=== PATIENT | female | born 1995 | race Caucasian/White ===

== ENCOUNTER 2017-03-27 09:07 | Inpatient (IN) | payer MEDICAID ==
[~2017-03-27] VITALS: Ht 154.9 cm; Wt 107.3 kg
[2017-03-27 09:34] VITALS: BP 138/77
[2017-03-27 09:43] LABS: HEMATOCRIT 34.4 % (34.6-47.8); HEMOGLOBIN 11.8 g/dL (11.7-16.4); WHITE BLOOD COUNT 12.6 x10^3/uL (3.4-10)
[2017-03-27 09:49] LABS: ASPARTATE AMINO TRANSFERASE 15 U/L (15-37); BLOOD UREA NITROGEN 7 mg/dL (7-18)
[2017-03-27] MEDS ORDERED: BETAMETHASONE 6 MG/ML, 5ML IM ONE (10:58)
[2017-03-27] MEDS: BETAMETHASONE 6 MG/ML, 5ML IM SCH (11:02)
[2017-03-27] MEDS ORDERED: ACETAMINOPHEN 325 MG TABLET ONE ×3 (14:04→23:54)
[2017-03-27] MEDS: ACETAMINOPHEN 325 MG TABLET PO PRN ×3 (14:20→23:57)
[2017-03-28] MEDS ORDERED: ACETAMINOPHEN 325 MG TABLET ONE (07:51)
[2017-03-28] MEDS: ACETAMINOPHEN 325 MG TABLET PO PRN (07:54)
[2017-03-28] MEDS: BETAMETHASONE 6 MG/ML, 5ML IM SCH (11:15)
== END 2017-03-28 12:55 | disposition home or self-care (01) | DRG 781 ==
LOC: LDOP 09:07 → LDIP 10:53
PROVIDERS: ADMIT Obstetrics & Gynecology Gynecology; ATTEND Obstetrics & Gynecology Gynecology
DX: O13.3 Gestational [pregnancy-induced] hypertension without significant proteinuria, third trimester (principal); O14.93 Unspecified pre-eclampsia, third trimester; J45.909 Unspecified asthma, uncomplicated; O99.513 Diseases of the respiratory system complicating pregnancy, third trimester; Z3A.32 32 weeks gestation of pregnancy
CPT/HCPCS: 36415; 80053; 81001; 81050; 82570; 84156; 84550; 85025; 87086; J0702

== ENCOUNTER 2017-04-16 11:58 | Outpatient (CLI) | payer MEDICAID ==
[~2017-04-16] VITALS: Ht 154.9 cm; Wt 110.0 kg
[2017-04-16 12:08] VITALS: BP 124/59
== END 2017-04-16 12:32 | disposition home or self-care (01) ==
LOC: LDOP 11:58
PROVIDERS: ATTEND Obstetrics & Gynecology Gynecology
DX: O10.913 Unspecified pre-existing hypertension complicating pregnancy, third trimester (principal); O99.513 Diseases of the respiratory system complicating pregnancy, third trimester; J45.909 Unspecified asthma, uncomplicated; Z3A.35 35 weeks gestation of pregnancy
CPT/HCPCS: 59025; 99211; G0463

== ENCOUNTER 2017-04-22 14:39 | Outpatient (CLI) | payer MEDICAID ==
[~2017-04-22] VITALS: Ht 154.9 cm; Wt 110.5 kg
[2017-04-22 14:45] VITALS: BP 135/72
[2017-04-22 15:24] LABS: ALANINE AMINOTRANSFERASE 18 U/L (12-78); ALBUMIN 2.2 g/dL (3.4-5.0); ANION GAP 9 mmol/L (5-15); CALCIUM 8.3 mg/dL (8.5-10.1); CHLORIDE 110 mmol/L (98-107); CREATININE 0.55 mg/dL (0.55-1.02)
[2017-04-22 15:27] LABS: ALKALINE PHOSPHATASE 141 U/L (45-117); BILIRUBIN,TOTAL 0.2 mg/dL (0.2-1.0); TOTAL PROTEIN 5.5 g/dL (6.4-8.2)
[2017-04-22 15:33] LABS: BASOPHILS # (AUTO) 0.02 x10^3/uL (0-0.1); BASOPHILS % (AUTO) 0 % (0-1); EOSINOPHILS # (AUTO) 0.14 x10^3/uL (0-0.4); EOSINOPHILS % (AUTO) 1 % (1-7); LYMPHOCYTES # (AUTO) 2.19 x10^3/uL (1-3.4); LYMPHOCYTES % (AUTO) 22 % (22-44); MD NO; MEAN CORPUSCULAR HEMOGLOBIN 26.5 pg (27.0-34.8); MEAN CORPUSCULAR HGB CONC 33.5 g/dL (32.4-35.8); MEAN CORPUSCULAR VOLUME 79.1 fL (80-100); MEAN PLATELET VOLUME 6.9 fL (7.4-10.4); MONOCYTES # (AUTO) 0.59 x10^3/uL (0.2-0.8); MONOCYTES % (AUTO) 6 % (2-9); NEUTROPHILS # (AUTO) 7.23 x10^3/uL (1.8-6.8); NEUTROPHILS % (AUTO) 71 % (42-75); PLATELET COUNT 294 x10^3/uL (130-400); RED BLOOD COUNT 4.02 x10^6/uL (3.82-5.3); RED CELL DISTRIBUTION WIDTH 14.1 % (9.6-15.2)
[2017-04-22 15:35] LABS: MICROSCOPIC INDICATED
== END 2017-04-22 16:00 | disposition home or self-care (01) ==
LOC: LDOP 14:39
PROVIDERS: ATTEND Obstetrics & Gynecology Gynecology
DX: O26.893 Other specified pregnancy related conditions, third trimester (principal); R03.0 Elevated blood-pressure reading, without diagnosis of hypertension; Z3A.36 36 weeks gestation of pregnancy
CPT/HCPCS: 36415; 59025; 80053; 81001; 84550; 85025; 99211; G0463

== ENCOUNTER 2017-04-29 07:46 | Inpatient (IN) | payer MEDICAID ==
[~2017-04-29] VITALS: Ht 154.9 cm; Wt 115.0 kg
[2017-04-29] MEDS ORDERED: D5%-LACTATED RINGERS 1,000 ML IV SCH (21:06)
[2017-04-29] MEDS ORDERED: OXYTOCIN 30U/ 0.9% NaCL 500ML 500 ML IV ONE (21:06)
[2017-04-29] MEDS ORDERED: METOCLOPRAMIDE 5 MG/ML, 2ML IVPush PRN (21:30)
[2017-04-29] MEDS ORDERED: SODIUM CITRATE/CITRIC ACID 30 ML UDC PO PRN (21:30)
[2017-04-29] MEDS ORDERED: ONDANSETRON 2MG/ML, 2ML IVPush PRN (21:30)
[2017-04-29] MEDS ORDERED: FENTANYL PF 100 MCG/2ML IV PRN (21:30)
[2017-04-29] MEDS ORDERED: MISOPROSTOL 25 MCG TABLET VG PRN (21:30)
[2017-04-29] MEDS ORDERED: TERBUTALINE 1 MG/ML, 1ML IVPush PRN (21:30)
[2017-04-29] MEDS ORDERED: CALCIUM CARBONATE 500 MG TAB.CHEW PO PRN (21:30)
[2017-04-29 21:31] LABS: BASOPHILS # (AUTO) 0.02 x10^3/uL (0-0.1); BASOPHILS % (AUTO) 0 % (0-1); EOSINOPHILS # (AUTO) 0.17 x10^3/uL (0-0.4); EOSINOPHILS % (AUTO) 1 % (1-7); LYMPHOCYTES # (AUTO) 2.23 x10^3/uL (1-3.4); LYMPHOCYTES % (AUTO) 19 % (22-44); MD NO; MEAN CORPUSCULAR HEMOGLOBIN 26.7 pg (27.0-34.8); MEAN CORPUSCULAR HGB CONC 33.6 g/dL (32.4-35.8); MEAN CORPUSCULAR VOLUME 79.3 fL (80-100); MONOCYTES # (AUTO) 0.78 x10^3/uL (0.2-0.8); MONOCYTES % (AUTO) 7 % (2-9); NEUTROPHILS # (AUTO) 8.48 x10^3/uL (1.8-6.8); NEUTROPHILS % (AUTO) 73 % (42-75); PLATELET COUNT 280 x10^3/uL (130-400); RED BLOOD COUNT 4.21 x10^6/uL (3.82-5.3); RED CELL DISTRIBUTION WIDTH 14.7 % (9.6-15.2)
[2017-04-29 21:42] LABS: ALBUMIN 2.3 g/dL (3.4-5.0); ANION GAP 9 mmol/L (5-15); CALCIUM 8.4 mg/dL (8.5-10.1); CHLORIDE 110 mmol/L (98-107)
[2017-04-29 21:45] LABS: ALANINE AMINOTRANSFERASE 17 U/L (12-78); ALKALINE PHOSPHATASE 160 U/L (45-117); BILIRUBIN,TOTAL 0.2 mg/dL (0.2-1.0); CREATININE 0.49 mg/dL (0.55-1.02); TOTAL PROTEIN 5.7 g/dL (6.4-8.2)
[2017-04-29] MEDS ORDERED: MISOPROSTOL 25 MCG TABLET ONE (21:46)
[2017-04-29 21:47] LABS: BILIRUBIN, DIRECT < 0.1 mg/dL (0.1-0.2)
[2017-04-30 01:51] LABS: MICROSCOPIC NOT IND
[2017-04-30] MEDS ORDERED: NEWBORN KIT ONE (02:53)
[2017-04-30] MEDS: LACTATED RINGERS 1,000 ML IV SCH ×3 (04:51→12:35)
[2017-04-30] MEDS ORDERED: OXYTOCIN 30U/ 0.9% NaCL 500ML 500 ML IV PRN (12:37)
[2017-04-30] MEDS ORDERED: OXYTOCIN 30U/ 0.9% NaCL 500ML 500 ML ONE (12:38)
[2017-04-30] MEDS ORDERED: FENTANYL PF 100 MCG/2ML ONE ×3 (17:24→19:34)
[2017-04-30] MEDS: FENTANYL PF 100 MCG/2ML IVPush PRN ×2 (17:26→18:31)
[2017-04-30] MEDS ORDERED: BUPIVACAINE 0.25% ONE ×2 (19:35→19:47)
[2017-04-30] MEDS ORDERED: FENTANYL/BUPIV./NS/PF 250 ML EPIDCONT ONE ×2 (19:35→19:47)
[2017-04-30] MEDS ORDERED: LIDOCAINE/PF 1.5%-EPI 1:200K, 30ML ONE (19:47)
[2017-04-30] MEDS ORDERED: LACTATED RINGERS 1,000 ML IV SCH (20:44)
[2017-04-30] MEDS ORDERED: FENTANYL/BUPIV./NS/PF 250 ML EPIDCONT SCH (20:44)
[2017-04-30] MEDS ORDERED: LACTATED RINGERS 1,000 ML IVBOLUS PRN (21:00)
[2017-05-01] MEDS ORDERED: OXYTOCIN 10 UNITS/ML, 1ML ONE (04:15)
[2017-05-01] MEDS ORDERED: MISOPROSTOL 200 MCG TABLET PR PRN (04:30)
[2017-05-01] MEDS ORDERED: DOCUSATE 100 MG CAPSULE PO PRN (04:30)
[2017-05-01] MEDS ORDERED: IBUPROFEN 600 MG TABLET ONE (04:44)
[2017-05-01] MEDS ORDERED: OXYcodone/APAP 5/325MG TABLET ONE (04:45)
[2017-05-01] MEDS: OXYcodone/APAP 5/325MG TABLET PO PRN ×2 (04:48→21:12)
[2017-05-01] MEDS: IBUPROFEN 600 MG TABLET PO PRN ×2 (04:48→21:12)
[2017-05-01] MEDS ORDERED: OXYTOCIN 10 UNITS/ML, 1ML IM ONE (05:00)
[2017-05-01 07:50] VITALS: BP 124/79
[2017-05-01] MEDS ORDERED: PRENATAL VIT/IRON/FA 1 EACH TABLET PO SCH (09:00)
[2017-05-01 12:30] VITALS: BP 135/84
[2017-05-01 13:21] LABS: MEAN CORPUSCULAR HEMOGLOBIN 26.7 pg (27.0-34.8); MEAN CORPUSCULAR HGB CONC 33.4 g/dL (32.4-35.8); MEAN PLATELET VOLUME 6.9 fL (7.4-10.4); PLATELET COUNT 293 x10^3/uL (130-400); RED CELL DISTRIBUTION WIDTH 14.6 % (9.6-15.2)
[2017-05-01 13:38] LABS: MD YES
[2017-05-01 13:39] LABS: BAND#(MANUAL) 1.56 x10^3/uL; BANDS%(MANUAL) 6 % (0-7); LYMPH#(MANUAL) 3.38 x10^3/uL (1-3.4); LYMPHS% (MANUAL) 13 % (22-44); MONOS% (MANUAL) 6 % (2-9); SEG#(MANUAL) 19.24 x10^3/uL (1.8-6.8); SEGS% (MANUAL) 74 % (42-75)
[2017-05-01 13:40] LABS: METAMYELOCYTES# (MANUAL) 0.26 x10^3/uL (0-0); METAMYELOCYTES% (MANUAL) 1 % (0-1); MONOS#(MANUAL) 1.56 x10^3/uL (0.3-2.7)
[2017-05-01 13:41] LABS: <PLATELET ESTIMATE> ADEQUATE; <PLT MORPHOLOGY> NORMAL PLT MORPH
[2017-05-01 13:42] LABS: POLYCHROMASIA 1+
[2017-05-01 15:57] VITALS: BP 117/77
[2017-05-01 21:15] VITALS: BP 124/77
[2017-05-02] MEDS: OXYTOCIN 30U/ 0.9% NaCL 500ML 500 ML IV SCH ×2 (00:29→10:29)
[2017-05-02 02:11] VITALS: BP 115/71
[2017-05-02] MEDS: IBUPROFEN 600 MG TABLET PO PRN ×3 (04:03→17:05)
[2017-05-02] MEDS: OXYcodone/APAP 5/325MG TABLET PO PRN (04:03)
[2017-05-02 07:00] VITALS: BP 110/72
[2017-05-02] MEDS ORDERED: IBUP-1222 PO (13:23)
== END 2017-05-02 17:15 | disposition home or self-care (01) | DRG 775 ==
LOC: LDIP 21:03 → 2NW 05-01 07:35
PROVIDERS: ADMIT Obstetrics & Gynecology Gynecology; ATTEND Obstetrics & Gynecology Gynecology
PROC: 10E0XZZ Delivery of Products of Conception, External Approach (ICD-10-PCS; principal; 2017-05-01)
PROC: 3E0R3BZ Introduction of Anesthetic Agent into Spinal Canal, Percutaneous Approach (ICD-10-PCS; 2017-05-01)
PROC: 00HU33Z Insertion of Infusion Device into Spinal Canal, Percutaneous Approach (ICD-10-PCS; 2017-05-01)
DX: O99.214 Obesity complicating childbirth (principal); Z68.42 Body mass index [BMI] 45.0-49.9, adult; Z37.0 Single live birth; O70.0 First degree perineal laceration during delivery; O13.4 Gestational [pregnancy-induced] hypertension without significant proteinuria, complicating childbirth; O99.52 Diseases of the respiratory system complicating childbirth; J45.909 Unspecified asthma, uncomplicated; E66.8 Other obesity; Z3A.37 37 weeks gestation of pregnancy
CPT/HCPCS: 36415; 80053; 81003; 82248; 84550; 85025; 86850; 86900; J3010; J3490; J2590; J7120

== ENCOUNTER 2020-05-18 05:16 | Inpatient (IN) | payer MEDICAID ==
[~2020-05-18] VITALS: Ht 154.9 cm; Wt 119.5 kg
[~2020-05-18 05:16] MED LIST: IBUP-1222 PO
[2020-05-18] MEDS ORDERED: MISOPROSTOL 200 MCG TABLET ONE (05:28)
[2020-05-18] MEDS ORDERED: OXYTOCIN 30U/ 0.9% NaCL 500ML 500 ML ONE (05:28)
[2020-05-18] MEDS ORDERED: NEWBORN KIT ONE (05:28)
[2020-05-18] MEDS ORDERED: LIDOCAINE 1%, 20ML ONE (05:28)
[2020-05-18] MEDS ORDERED: SODIUM CITRATE/CITRIC ACID 30 ML UDC PO PRN (05:30)
[2020-05-18] MEDS ORDERED: OXYTOCIN 30U/ 0.9% NaCL 500ML 500 ML IV ONE (05:30)
[2020-05-18] MEDS ORDERED: METOCLOPRAMIDE 5 MG/ML, 2ML IVPush PRN (05:30)
[2020-05-18] MEDS ORDERED: FENTANYL PF 100 MCG/2ML IV PRN (05:30)
[2020-05-18] MEDS ORDERED: ONDANSETRON 2MG/ML, 2ML IVPush PRN ×2 (05:30→15:30)
[2020-05-18] MEDS ORDERED: D5%-LACTATED RINGERS 1,000 ML IV SCH (05:30)
[2020-05-18] MEDS ORDERED: FENTANYL PF 100 MCG/2ML IVPush PRN (05:30)
[2020-05-18] MEDS ORDERED: TERBUTALINE 1 MG/ML, 1ML IVPush PRN (05:30)
[2020-05-18] MEDS ORDERED: CALCIUM CARBONATE 500 MG TAB.CHEW PO PRN (05:30)
[2020-05-18] MEDS ORDERED: TERBUTALINE 1 MG/ML, 1ML SQ PRN (05:30)
[2020-05-18] MEDS: LACTATED RINGERS 1,000 ML IV SCH ×2 (05:30→14:14)
[2020-05-18] MEDS ORDERED: ALBU6.7H8 INH (05:43)
[2020-05-18] MEDS ORDERED: PREN1TAB79 PEG (05:43)
[2020-05-18 05:45] VITALS: BP 126/59
[2020-05-18 06:19] LABS: MEAN CORPUSCULAR HGB CONC 33.9 g/dL (32.4-35.8); MEAN PLATELET VOLUME 6.8 fL (7.4-10.4); PLATELET COUNT 267 x10^3/uL (130-400); RED BLOOD COUNT 4.08 x10^6/uL (3.82-5.3); RED CELL DISTRIBUTION WIDTH 14.1 % (9.6-15.2)
[2020-05-18] MEDS ORDERED: MISOPROSTOL 25 MCG TABLET ONE (06:23)
[2020-05-18] MEDS ORDERED: MISOPROSTOL 25 MCG TABLET VG PRN (06:30)
[2020-05-18] MEDS ORDERED: FLU VACC QS2020-21(6MOS UP)/PF 60MCG/0.5 ML SYR IM-VACC ONE (06:30)
[2020-05-18 06:54] LABS: MD YES
[2020-05-18 06:57] LABS: <PLATELET ESTIMATE> ADEQUATE; <PLT MORPHOLOGY> NORMAL PLT MORPH; <RBC MORPHOLOGY> NORMAL; BANDS%(MANUAL) 2 % (0-7); EOS% (MANUAL) 2 % (1-7); LYMPH#(MANUAL) 1.57 x10^3/uL (1-3.4); LYMPHS% (MANUAL) 16 % (22-44); METAMYELOCYTES% (MANUAL) 2 % (0-1); MONOS#(MANUAL) 0.59 x10^3/uL (0.3-2.7); MONOS% (MANUAL) 6 % (2-9); SEG#(MANUAL) 7.06 x10^3/uL (1.8-6.8); SEGS% (MANUAL) 72 % (42-75)
[2020-05-18] MEDS ORDERED: OXYTOCIN 30U/ 0.9% NaCL 500ML 500 ML IV PRN (11:30)
[2020-05-18] MEDS ORDERED: BUPIVACAINE 0.25% ONE (15:07)
[2020-05-18] MEDS ORDERED: FENTANYL/BUPIV./NS/PF 250 ML EPIDCONT ONE (15:07)
[2020-05-18] MEDS ORDERED: LACTATED RINGERS 1,000 ML IVBOLUS PRN (15:30)
[2020-05-18] MEDS ORDERED: FENTANYL/BUPIV./NS/PF 250 ML EPIDCONT SCH (15:30)
[2020-05-18] MEDS ORDERED: LACTATED RINGERS 1,000 ML IV SCH (15:30)
[2020-05-18] MEDS ORDERED: DIPHENHYDRAMINE 50 MG/ML, 1ML IVPush PRN (15:30)
[2020-05-18] MEDS ORDERED: NALOXONE 0.4 MG/ML, 1ML IVPush PRN (15:30)
[2020-05-18] MEDS ORDERED: EPHEDRINE 50 MG/ML, 1ML IVPush PRN (15:30)
[2020-05-19] MEDS ORDERED: OXYTOCIN 30U/ 0.9% NaCL 500ML 500 ML ONE (02:22)
[2020-05-19 02:50] VITALS: BP 119/65
[2020-05-19] MEDS ORDERED: OXYcodone/APAP 5/325MG TABLET PO PRN ×5 (03:30)
[2020-05-19] MEDS ORDERED: ACETAMINOPHEN 325 MG TABLET PO PRN ×6 (03:30)
[2020-05-19] MEDS ORDERED: DIPH,PERTUSS(ACELL),TET VAC/PF NC IM-VACC PRN ×3 (03:30)
[2020-05-19] MEDS ORDERED: IBUPROFEN 600 MG TABLET PO PRN ×2 (03:30)
[2020-05-19] MEDS ORDERED: OXYTOCIN 30U/ 0.9% NaCL 500ML 500 ML IV SCH ×2 (03:30)
[2020-05-19] MEDS ORDERED: METHYLERGONOVINE 0.2 MG/ML IM PRN ×3 (03:30)
[2020-05-19] MEDS ORDERED: MISOPROSTOL 200 MCG TABLET PR PRN ×3 (03:30)
[2020-05-19] MEDS ORDERED: DOCUSATE 100 MG CAPSULE PO PRN ×2 (03:30)
[2020-05-19] MEDS: OXYTOCIN 30U/ 0.9% NaCL 500ML 500 ML IV SCH ×3 (03:30→23:30)
[2020-05-19] MEDS ORDERED: SIMETHICONE 80 MG CHEW TAB PO PRN ×3 (03:30)
[2020-05-19] MEDS ORDERED: ONDANSETRON 2MG/ML, 2ML IV PRN ×3 (03:30)
[2020-05-19] MEDS: IBUPROFEN 600 MG TABLET PO PRN ×4 (03:38→22:57)
[2020-05-19] MEDS: OXYcodone/APAP 5/325MG TABLET PO PRN ×2 (05:14→09:54)
[2020-05-19 07:44] VITALS: BP 113/72
[2020-05-19] MEDS: PRENATAL VIT/IRON/FA 1 EACH TABLET PO SCH (07:54)
[2020-05-19] MEDS: DOCUSATE 100 MG CAPSULE PO PRN ×2 (07:54→22:57)
[2020-05-19] MEDS ORDERED: PRENATAL VIT/IRON/FA 1 EACH TABLET PO SCH ×2 (09:00)
[2020-05-19 09:10] LABS: BASOPHILS % (AUTO) 0 % (0-1); EOSINOPHILS % (AUTO) 1 % (1-7); LYMPHOCYTES % (AUTO) 14 % (22-44); MEAN CORPUSCULAR HEMOGLOBIN 26.9 pg (27.0-34.8); MEAN CORPUSCULAR HGB CONC 33.3 g/dL (32.4-35.8); MEAN PLATELET VOLUME 7.4 fL (7.4-10.4); MONOCYTES % (AUTO) 8 % (2-9); NEUTROPHILS % (AUTO) 77 % (42-75); PLATELET COUNT 270 x10^3/uL (130-400); RED BLOOD COUNT 3.95 x10^6/uL (3.82-5.3); RED CELL DISTRIBUTION WIDTH 14.2 % (9.6-15.2)
[2020-05-19 09:14] LABS: MD NO
[2020-05-19 12:03] VITALS: BP 117/74
[2020-05-19 16:46] VITALS: BP 107/72
[2020-05-19] MEDS ORDERED: DIPH,PERTUSS(ACELL),TET VAC/PF NC IM-VACC ONE (19:00)
[2020-05-19 19:30] VITALS: BP 106/66
[2020-05-20 00:05] VITALS: BP 109/69
[2020-05-20] MEDS: IBUPROFEN 600 MG TABLET PO PRN (04:39)
[2020-05-20 08:10] VITALS: BP 114/73
[2020-05-20] MEDS: DOCUSATE 100 MG CAPSULE PO PRN (10:18)
[2020-05-20] MEDS: PRENATAL VIT/IRON/FA 1 EACH TABLET PO SCH (10:19)
== END 2020-05-20 10:55 | disposition home or self-care (01) | DRG 807 ==
LOC: LDIP 05:16 → 2NW 05-19 02:42
PROVIDERS: ADMIT Obstetrics & Gynecology; ATTEND Obstetrics & Gynecology
PROC: 10E0XZZ Delivery of Products of Conception, External Approach (ICD-10-PCS; principal; 2020-05-19)
PROC: 10907ZC Drainage of Amniotic Fluid, Therapeutic from Products of Conception, Via Natural or Artificial Opening (ICD-10-PCS; 2020-05-19)
PROC: 3E033VJ Introduction of Other Hormone into Peripheral Vein, Percutaneous Approach (ICD-10-PCS; 2020-05-19)
PROC: 3E0R3BZ Introduction of Anesthetic Agent into Spinal Canal, Percutaneous Approach (ICD-10-PCS; 2020-05-19)
PROC: 00HU33Z Insertion of Infusion Device into Spinal Canal, Percutaneous Approach (ICD-10-PCS; 2020-05-19)
DX: O69.81X0 Labor and delivery complicated by cord around neck, without compression, not applicable or unspecified (principal); Z37.0 Single live birth; Z3A.39 39 weeks gestation of pregnancy; Z20.822 Contact with and (suspected) exposure to COVID-19
CPT/HCPCS: 36415; 85025; 86592; 86850; 86900; 87635; 90686; 90715; G0378; J2590; J3010; J7120